=== PATIENT | male | born 1990 | race Caucasian/White ===

== ENCOUNTER 2020-07-09 12:21 | Emergency (ER) | payer OTHER ==
[~2020-07-09 12:21] MED LIST: ALBUTEROL2.5 MG/0.1 INH; ATIVAN1 M1 PO; POTASSIUM20 PO; PROAIR HFA8.5 GM INH
== END 2020-07-09 13:06 | disposition left against medical advice (07) ==
LOC: M.ERS 12:21
DX: Z53.21 Procedure and treatment not carried out due to patient leaving prior to being seen by health care provider (principal)

== ENCOUNTER 2021-05-07 08:59 | Emergency (ER) | payer MEDICAID ==
[~2021-05-07] VITALS: Ht 177.8 cm; Wt 68.0 kg
[2021-05-07 09:36] VITALS: BP 128/82
[2021-05-07 09:37] LABS: URINE BILIRUBIN NEGATIVE (Negative); URINE BLOOD 3+ (Negative); URINE CLARITY CLEAR; URINE COLOR YELLOW; URINE GLUCOSE-RANDOM NEGATIVE (Negative); URINE KETONES NEGATIVE (Negative); URINE LEUKOCYTES-REFLEX NEGATIVE (Negative); URINE NITRITE-REFLEX NEGATIVE (Negative); URINE PROTEIN NEGATIVE (Negative); URINE SPECIFIC GRAVITY <= 1.005 (1.005-1.030); URINE UROBILINOGEN 0.2 E.U./dl (0.2-1.0)
[2021-05-07 09:44] LABS: BACTERIA-REFLEX None Seen /HPF (None Seen); CASTS None Seen /LPF (None Seen); CRYSTALS None Seen /LPF (None Seen); SQUAMOUS 0-3 Few /LPF (0-3); URINE WBC-REFLEX 0-5 Rare /HPF (0-5)
[2021-05-07 09:45] LABS: AMP/METHAMP Negative (Negative); BARBITURATES Negative (Negative); BENZODIAZEPINES POSITIVE (Negative); COCAINE Negative (Negative); METHADONE Negative (Negative); OPIATES Negative (Negative); PCP Negative (Negative); THC Negative (Negative)
--- NOTE | 2021-05-07 11:38 | EKG ---
[place] [address] ELECTROCARDIOGRAM REPORT Name: ALBINA BISWASOTHY [id number] Admission: 05/07/21 Attend Phys: Discharge: 05/07/21 Date of : [birth year] Date of Service: 05/07/21908 Report #: [id number] THIS REPORT FOR: //name// [facility] ED Test Date: 2021-05-07 Test Time: 09:09:36 Pat Name: KYLER BISWAS Department: Room: Gender: Human Resources Admin: [facility] : 1990 Requested By: Mark Anthony Forte Order Number: [id number] MD: Kashif Tucker Measurements Intervals [place] Rate: 89 P: 72 [place]: 145 QRS: 65 QRSD: 108 T: 26 QT: 386 QTc: 470 Interpretive Statements Sinus rhythm Probable left atrial enlargement Borderline prolonged QT interval No previous ECG available for comparison Electronically Signed On 05-07-2021 11:38:19 DIVE SUPERINTENDENT by Kashif Tucker [email or web address] <ELECTRONICALLY SIGNED> By: Kashif Tucker MD, [facility] 05/07/21 [id number] 8 Kashif Tucker MD, FACC /EPI
== END 2021-05-07 09:38 | disposition left against medical advice (07) ==
LOC: M.ERS 08:59
PROVIDERS: Family Medicine
DX: T50.991A Poisoning by other drugs, medicaments and biological substances, accidental (unintentional), initial encounter (principal); R40.20 Unspecified coma; Z79.899 Other long term (current) drug therapy; Y92.89 Other specified places as the place of occurrence of the external cause